=== PATIENT | female | born 1980 | race Caucasian/White ===

== ENCOUNTER 2020-06-03 19:23 | Emergency (ER) | payer OTHER ==
[~2020-06-03] VITALS: Ht 162.6 cm; Wt 56.7 kg
[2020-06-03] MEDS ORDERED: PRINIVIL10 MG PO (19:46)
[2020-06-03 19:52] LABS: Source, Urine Clean Catch
[2020-06-03 19:57] LABS: Appearance, Urine Clear (Clear); Bilirubin, Urine Neg (Neg); Blood, Urine Neg (Neg); Color, Urine Yellow (P-Yellow); Glucose Qualitative, Urine Neg (Neg); Ketones, Urine Neg (Neg); Leukocyte Esterase, Urine Neg (Neg); Nitrite, Urine Neg (Neg); Protein, Urine Neg (Neg); Urobilinogen, Urine NORM (Normal)
[2020-06-03 20:20] LABS: BASOPHILS ABSOLUTE AUTO 0.07 K/mm3 (0.00-0.23); BASOPHILS PERCENT AUTO 1 % (0-2); EOSINOPHILS PERCENT AUTO 5 % (0-6); Hematocrit 41.7 % (33.0-51.0); Hemoglobin 13.6 g/dL (11.5-16.0); IMMATURE GRAN ABSOLUTE AUTO 0.02 K/mm3 (0.00-0.10); IMMATURE GRAN PERCENT AUTO 0 % (0-1); LYMPHOCYTES ABSOLUTE AUTO 2.47 K/mm3 (0.84-5.20); LYMPHOCYTES PERCENT AUTO 39 % (21-46); MONOCYTES ABSOLUTE AUTO 0.46 K/mm3 (0.16-1.47); MONOCYTES PERCENT AUTO 7 % (4-13); Mean Corpuscular HGB Conc 32.6 g/dL (31.5-36.5); Mean Corpuscular Volume 92 fL (80-100); Mean Platelet Volume 9.7 fL (9.1-12.4); NEUTROPHILS ABSOLUTE AUTO 3.01 K/mm3 (1.96-9.15); NEUTROPHILS PERCENT AUTO 48 % (41-73); Platelet Count 254 K/mm3 (150-400); RDW Coefficient Variation 13.1 % (11.7-14.2); RDW Standard Deviation 44.1 fL (35.1-46.3); Red Blood Cell Count 4.53 M/mm3 (3.80-5.20); White Blood Cell Count 6.33 K/mm3 (4.00-11.30)
[2020-06-03 20:36] LABS: Alanine Aminotransfer (ALT/SGP 14 U/L (12-78); Albumin/Globulin Ratio 1.3 (0.8-1.8); Alk Phos 39 U/L (50-136); Anion Gap 7 mmol/L (6-16); Aspartate Aminotrans (AST/SGOT 14 U/L (12-37); Bilirubin, Total 0.4 mg/dL (0.1-1.0); Blood Urea Nitrogen 16 mg/dL (8-24); Bun/Creatinine Ratio 19.3 (12.0-20.0); CO2, Blood 28 mmol/L (21-32); Calcium, Blood 9.3 mg/dL (8.5-10.1); Chloride, Blood 107 mmol/L (98-108); Creatinine, Blood 0.83 mg/dL (0.40-1.00); Globulin, Blood 3.1 g/dL (2.2-4.0); Glomerular Filtration Rate >60 (60-); Glucose, Blood 91 mg/dL (70-99); Potassium, Blood 3.5 mmol/L (3.5-5.5); Sodium, Blood 142 mmol/L (136-145); Total Protein, Blood 7.1 g/dL (6.4-8.2)
== END 2020-06-03 22:06 | disposition home or self-care (01) ==
LOC: ER 19:23
PROVIDERS: Physician Assistant
DX: N81.10 Cystocele, unspecified (principal); Z88.0 Allergy status to penicillin; Z79.899 Other long term (current) drug therapy; I10 Essential (primary) hypertension
CPT/HCPCS: 74176; 80053; 81003; 81025; 83690; 85025; 96361; 96374; 96375; 99284-25; A9270; J1885; J2405; J3010; J7030

== ENCOUNTER 2020-09-25 15:49 | Emergency (ER) | payer OTHER ==
[~2020-09-25] VITALS: Ht 162.6 cm; Wt 56.7 kg
[~2020-09-25 15:49] MED LIST: PRINIVIL10 MG PO
[2020-09-25] MEDS ORDERED: CODEINE-GUAIFE120 M1 PO (20:14)
[2020-09-25] MEDS ORDERED: NORVASC5 MG PO (20:14)
== END 2020-09-25 20:29 | disposition home or self-care (01) ==
LOC: ER 15:49
DX: R05 Cough (principal); I10 Essential (primary) hypertension; Z87.891 Personal history of nicotine dependence; Z79.899 Other long term (current) drug therapy
CPT/HCPCS: 71046; 99284-25

== ENCOUNTER 2021-05-01 19:39 | Emergency (ER) | payer OTHER ==
[~2021-05-01] VITALS: Ht 162.6 cm; Wt 59.0 kg
[~2021-05-01 19:39] MED LIST changes: +CODEINE-GUAIFE120 M1 PO; +NORVASC5 MG PO
== END 2021-05-01 23:39 | disposition home or self-care (01) ==
LOC: ER 19:39
DX: B34.9 Viral infection, unspecified (principal); Z88.0 Allergy status to penicillin; Z88.6 Allergy status to analgesic agent; Z79.899 Other long term (current) drug therapy; Z87.891 Personal history of nicotine dependence; Z20.822 Contact with and (suspected) exposure to COVID-19
CPT/HCPCS: 71046; 99283-25; A9270

== ENCOUNTER → 2021-06-02 | Outpatient (CLI) | payer OTHER ==
[2021-06-02 16:56] LABS: CHOL/HDL RATIO 2.5; Cholesterol 168 mg/dL (50-200); HDL Cholesterol 66 mg/dL (>39); LDL/HDL RATIO 1.2; Low Density Lipoprotein Chol 76 mg/dL (<110); Triglycerides 130 mg/dL (30-140); Very Low Density Lipoprot Chol 26 mg/dL (6-28)
[2021-06-02 17:04] LABS: Alanine Aminotransfer (ALT/SGP 12 U/L (12-78); Albumin, Blood 4.1 g/dL (3.4-5.0); Albumin/Globulin Ratio 1.4 (0.8-1.8); Alk Phos 51 U/L (40-126); Anion Gap 8 mmol/L (6-16); Aspartate Aminotrans (AST/SGOT 10 U/L (12-37); Bilirubin, Total 0.6 mg/dL (0.1-1.0); Blood Urea Nitrogen 12 mg/dL (8-24); Bun/Creatinine Ratio 19.4 (12.0-20.0); CO2, Blood 25 mmol/L (21-32); Chloride, Blood 104 mmol/L (98-108); Creatinine, Blood 0.62 mg/dL (0.40-1.00); Glomerular Filtration Rate >60 (60-); Glucose, Blood 90 mg/dL (70-99); Potassium, Blood 4.2 mmol/L (3.5-5.5); Sodium, Blood 137 mmol/L (136-145); Thyroid Stimulating Hormone 1.772 uIU/mL (0.360-4.800); Total Protein, Blood 7.1 g/dL (6.4-8.2)
== END | disposition home or self-care (01) ==
LOC: LAB 16:36 → LAB SHORT 16:36
PROVIDERS: Physician Assistant
DX: Z00.00 Encounter for general adult medical examination without abnormal findings (principal); R30.9 Painful micturition, unspecified; I10 Essential (primary) hypertension
CPT/HCPCS: 80053; 80061; 84443; 87086

== ENCOUNTER 2021-06-09 20:07 | Emergency (ER) | payer OTHER ==
[~2021-06-09] VITALS: Ht 162.6 cm; Wt 59.0 kg
[2021-06-09 21:49] LABS: BASOPHILS ABSOLUTE AUTO 0.06 K/mm3 (0.00-0.23); BASOPHILS PERCENT AUTO 1 % (0-2); EOSINOPHILS ABSOLUTE AUTO 0.19 K/mm3 (0.00-0.68); EOSINOPHILS PERCENT AUTO 3 % (0-6); Hematocrit 41.4 % (33.0-51.0); Hemoglobin 14.2 g/dL (11.5-16.0); IMMATURE GRAN ABSOLUTE AUTO 0.02 K/mm3 (0.00-0.10); IMMATURE GRAN PERCENT AUTO 0 % (0-1); LYMPHOCYTES ABSOLUTE AUTO 2.99 K/mm3 (0.84-5.20); LYMPHOCYTES PERCENT AUTO 41 % (21-46); MONOCYTES ABSOLUTE AUTO 0.48 K/mm3 (0.16-1.47); MONOCYTES PERCENT AUTO 7 % (4-13); Mean Corpuscular HGB 30.9 pg (26.0-34.0); Mean Corpuscular HGB Conc 34.3 g/dL (31.5-36.5); Mean Corpuscular Volume 90 fL (80-100); NEUTROPHILS ABSOLUTE AUTO 3.63 K/mm3 (1.96-9.15); NEUTROPHILS PERCENT AUTO 49 % (41-73); Platelet Count 251 K/mm3 (150-400); RDW Coefficient Variation 12.3 % (11.7-14.2); RDW Standard Deviation 40.6 fL (35.1-46.3); Red Blood Cell Count 4.59 M/mm3 (3.80-5.20); White Blood Cell Count 7.37 K/mm3 (4.00-11.30)
[2021-06-09 22:09] LABS: Alanine Aminotransfer (ALT/SGP 17 U/L (12-78); Albumin/Globulin Ratio 1.3 (0.8-1.8); Alk Phos 43 U/L (50-136); Anion Gap 6 mmol/L (6-16); Aspartate Aminotrans (AST/SGOT 13 U/L (12-37); Bilirubin, Total 0.7 mg/dL (0.1-1.0); Blood Urea Nitrogen 13 mg/dL (8-24); CO2, Blood 26 mmol/L (21-32); Calcium, Blood 8.9 mg/dL (8.5-10.1); Chloride, Blood 107 mmol/L (98-108); Creatinine, Blood 0.76 mg/dL (0.40-1.00); Globulin, Blood 3.1 g/dL (2.2-4.0); Glomerular Filtration Rate >60 (60-); Glucose, Blood 82 mg/dL (70-99); Potassium, Blood 3.5 mmol/L (3.5-5.5); Sodium, Blood 139 mmol/L (136-145); Total Protein, Blood 7.1 g/dL (6.4-8.2); Troponin I <0.015 ng/mL (0.000-0.040)
== END 2021-06-10 00:43 | disposition home or self-care (01) ==
LOC: ER 20:07
PROVIDERS: Physician Assistant
DX: M94.0 Chondrocostal junction syndrome [Tietze] (principal); F17.210 Nicotine dependence, cigarettes, uncomplicated; R06.02 Shortness of breath; Z79.899 Other long term (current) drug therapy
CPT/HCPCS: 36415; 71046; 80053; 83690; 84484; 85025; 93005; 93010; 96374; 99285-25; J1885

== ENCOUNTER 2022-03-28 19:52 | Emergency (ER) | payer OTHER ==
[~2022-03-28] VITALS: Ht 162.6 cm; Wt 63.5 kg
[~2022-03-28 19:52] MED LIST changes: +ONDA4ODT MM
[2022-03-28 20:26] LABS: BASOPHILS ABSOLUTE AUTO 0.06 K/mm3 (0.00-0.23); BASOPHILS PERCENT AUTO 1 % (0-2); EOSINOPHILS ABSOLUTE AUTO 0.15 K/mm3 (0.00-0.68); EOSINOPHILS PERCENT AUTO 2 % (0-6); Hematocrit 43.9 % (33.0-51.0); Hemoglobin 15.4 g/dL (11.5-16.0); IMMATURE GRAN ABSOLUTE AUTO 0.02 K/mm3 (0.00-0.10); IMMATURE GRAN PERCENT AUTO 0 % (0-1); LYMPHOCYTES ABSOLUTE AUTO 2.21 K/mm3 (0.84-5.20); LYMPHOCYTES PERCENT AUTO 29 % (21-46); MONOCYTES ABSOLUTE AUTO 0.47 K/mm3 (0.16-1.47); MONOCYTES PERCENT AUTO 6 % (4-13); Mean Corpuscular HGB 31.8 pg (26.0-34.0); Mean Corpuscular HGB Conc 35.1 g/dL (31.5-36.5); Mean Corpuscular Volume 91 fL (80-100); Mean Platelet Volume 9.5 fL (9.1-12.4); NEUTROPHILS PERCENT AUTO 62 % (41-73); Platelet Count 313 K/mm3 (150-400); RDW Coefficient Variation 12.3 % (11.7-14.2); RDW Standard Deviation 41.1 fL (35.1-46.3); Red Blood Cell Count 4.84 M/mm3 (3.80-5.20); White Blood Cell Count 7.71 K/mm3 (4.00-11.30)
[2022-03-28 20:47] LABS: Albumin, Blood 3.9 g/dL (3.4-5.0); Albumin/Globulin Ratio 1.1 (0.8-1.8); Bilirubin, Total 0.4 mg/dL (0.1-1.0); Bun/Creatinine Ratio 19.6 (12.0-20.0); Calcium, Blood 8.9 mg/dL (8.5-10.1); Creatinine, Blood 0.66 mg/dL (0.40-1.00); Globulin, Blood 3.5 g/dL (2.2-4.0); Potassium, Blood 3.5 mmol/L (3.5-5.5); Total Protein, Blood 7.4 g/dL (6.4-8.2)
[2022-03-28] MEDS ORDERED: Prinivil10 MG PO (22:55)
[2022-03-28] MEDS ORDERED: Flonase 0.05% N16 GM (22:55)
[2022-03-28] MEDS ORDERED: HYDR1TAB94 PO (23:00)
[2022-03-28] MEDS ORDERED: BENZ100A PO (23:00)
[2022-03-28 23:52] LABS: Influenza A, PCR NEGATIVE (NEGATIVE); Influenza B, PCR NEGATIVE (NEGATIVE); Resp Syncytial Virus, PCR NEGATIVE (NEGATIVE); SARS-Cov-2 (COVID-19) PCR, MMC NEGATIVE (NEGATIVE)
== END 2022-03-28 23:27 | disposition home or self-care (01) ==
LOC: ER 19:52
PROVIDERS: Emergency Medicine; Physician Assistant
DX: R07.89 Other chest pain (principal); J40 Bronchitis, not specified as acute or chronic; F17.210 Nicotine dependence, cigarettes, uncomplicated; I10 Essential (primary) hypertension; Z20.822 Contact with and (suspected) exposure to COVID-19; Z88.0 Allergy status to penicillin; Z88.1 Allergy status to other antibiotic agents
CPT/HCPCS: 0241U; 36415; 71045; 80053; 83690; 84484; 85025; 93005; 93010; A9270

== ENCOUNTER → 2022-12-25 | Outpatient (CLI) | payer OTHER ==
[~2022-12-25] MED LIST changes: +BENZ100A PO; +Flonase 0.05% N16 GM; +HYDR1TAB94 PO; +Prinivil10 MG PO
== END | disposition home or self-care (01) ==
LOC: LAB SHORT 07:15 → LAB 07:15
DX: R20.8 Other disturbances of skin sensation (principal)
CPT/HCPCS: 87086

== ENCOUNTER 2023-09-05 16:37 | Emergency (ER) | payer OTHER ==
[~2023-09-05] VITALS: Ht 162.6 cm; Wt 61.2 kg
[2023-09-05 17:07] VITALS: BP 151/90
[2023-09-05 18:10] LABS: Influenza A, PCR NEGATIVE (NEGATIVE); Influenza B, PCR NEGATIVE (NEGATIVE); Resp Syncytial Virus, PCR NEGATIVE (NEGATIVE); SARS-Cov-2 (COVID-19) PCR, MMC NEGATIVE (NEGATIVE)
== END 2023-09-05 19:32 | disposition home or self-care (01) ==
LOC: ER 16:37
PROVIDERS: Student in an Organized Health Care Education/Training Program
DX: J06.9 Acute upper respiratory infection, unspecified (principal); I10 Essential (primary) hypertension; F17.210 Nicotine dependence, cigarettes, uncomplicated; Z79.899 Other long term (current) drug therapy; Z20.822 Contact with and (suspected) exposure to COVID-19; Z88.0 Allergy status to penicillin; Z88.8 Allergy status to other drugs, medicaments and biological substances
CPT/HCPCS: 0241U; 71046; 87081; 87430; 96372; 99283-25; J1885

== ENCOUNTER 2025-01-01 12:24 | Emergency (ER) | payer SELFPAY ==
[~2025-01-01] VITALS: Ht 162.6 cm; Wt 63.5 kg
[2025-01-01 12:49] VITALS: BP 151/80
[2025-01-01 13:13] LABS: Source, Urine Clean Catch
[2025-01-01 13:22] LABS: Appearance, Urine Clear (Clear); Bilirubin, Urine Neg (Neg); Blood, Urine 4+ (Neg); Color, Urine Yellow (P-Yellow); Glucose Qualitative, Urine Neg (Neg); Ketones, Urine Neg (Neg); Leukocyte Esterase, Urine 3+ (Neg); Nitrite, Urine Neg (Neg); Protein, Urine 1+ (Neg); Urobilinogen, Urine NORM (Normal)
[2025-01-01 14:16] LABS: Bacteria Many /hpf; Red Blood Cells, Urine 0-2 /hpf (0-2); Squamous Epithelial Cells Rare /hpf (Few); White Blood Cells, Urine 25-50 /hpf (0-5)
[2025-01-01] MEDS ORDERED: CEFP200 PO (14:41)
[2025-01-01] MEDS ORDERED: PHENA200 PO (14:41)
[2025-01-01] MEDS ORDERED: Phenazopyridine HCl 100 MG Tab PO ONE (14:45)
[2025-01-01] MEDS ORDERED: Ibuprofen 600 MG Tab PO ONE (14:45)
== END 2025-01-01 14:49 | disposition home or self-care (01) ==
LOC: ER 12:24
PROVIDERS: Physician Assistant
DX: N12 Tubulo-interstitial nephritis, not specified as acute or chronic (principal); I10 Essential (primary) hypertension; F17.210 Nicotine dependence, cigarettes, uncomplicated; Z87.440 Personal history of urinary (tract) infections; Z88.0 Allergy status to penicillin; Z88.8 Allergy status to other drugs, medicaments and biological substances; Z79.899 Other long term (current) drug therapy; Z59.89 Other problems related to housing and economic circumstances
CPT/HCPCS: 81001; 87077; 87086; 87186; 99283; A9270

== ENCOUNTER 2025-01-10 23:48 | Emergency (ER) | payer SELFPAY ==
[~2025-01-10] VITALS: Ht 162.6 cm; Wt 60.9 kg
[~2025-01-10 23:48] MED LIST changes: +CEFP200 PO; +PHENA200 PO
[2025-01-11 01:14] LABS: U Amphetamine Screen DETECTED; U Barbituate Screen Not Detected; U Benzodiazapine Screen DETECTED; U Buprenorphine Screen Not Detected; U Cannabinoids Screen Not Detected; U Cocaine Screen Not Detected; U Methadone Screen Not Detected; U Methamphetamine Screen DETECTED; U Opiates Screen Not Detected; U Oxycodone Screen Not Detected; U Phencyclidine Screen Not Detected
[2025-01-11 01:30] VITALS: BP 150/102
[2025-01-11] MEDS ORDERED: ALPRAZolam 0.25 MG Tab PO ONE (01:45)
== END 2025-01-11 01:57 | disposition home or self-care (01) ==
LOC: ER 23:48
PROVIDERS: Emergency Medicine
DX: T43.651A Poisoning by methamphetamines accidental (unintentional), initial encounter (principal); I10 Essential (primary) hypertension; Z59.89 Other problems related to housing and economic circumstances; Z88.0 Allergy status to penicillin; Z88.6 Allergy status to analgesic agent; Z79.899 Other long term (current) drug therapy; Z88.1 Allergy status to other antibiotic agents; Z79.2 Long term (current) use of antibiotics; Z79.1 Long term (current) use of non-steroidal anti-inflammatories (NSAID); Z79.891 Long term (current) use of opiate analgesic
CPT/HCPCS: 99283; A9270

== ENCOUNTER 2025-03-07 14:03 | Emergency (ER) | payer SELFPAY ==
[~2025-03-07] VITALS: Ht 162.6 cm; Wt 59.0 kg
[2025-03-07 14:12] VITALS: BP 161/98
[2025-03-07 14:49] LABS: Source, Urine Voided
[2025-03-07 14:53] LABS: Appearance, Urine Hazy (Clear); Bilirubin, Urine Neg (Neg); Blood, Urine 3+ (Neg); Color, Urine Yellow (P-Yellow); Glucose Qualitative, Urine Neg (Neg); Ketones, Urine Neg (Neg); Leukocyte Esterase, Urine 3+ (Neg); Nitrite, Urine Neg (Neg); Protein, Urine 2+ (Neg); Urobilinogen, Urine NORM (Normal)
[2025-03-07 15:02] LABS: Bacteria Many /hpf; Squamous Epithelial Cells Mod /hpf (Few); White Blood Cells, Urine TNTC /hpf (0-5)
[2025-03-07] MEDS ORDERED: Cephalexin Monohydrate 500 MG Cap PO ONE (15:10)
[2025-03-07] MEDS ORDERED: CEPH500 PO (15:16)
== END 2025-03-07 15:30 | disposition home or self-care (01) ==
LOC: ER 14:03
PROVIDERS: Emergency Medicine
DX: N39.0 Urinary tract infection, site not specified (principal); I10 Essential (primary) hypertension; F17.210 Nicotine dependence, cigarettes, uncomplicated; Z87.440 Personal history of urinary (tract) infections; Z88.0 Allergy status to penicillin; Z88.1 Allergy status to other antibiotic agents; Z79.899 Other long term (current) drug therapy
CPT/HCPCS: 81001; 87077; 87086; 87186; 99283; A9270

== ENCOUNTER 2025-03-09 23:48 | Emergency (ER) | payer SELFPAY ==
[~2025-03-09] VITALS: Ht 162.6 cm; Wt 59.0 kg
[~2025-03-09 23:48] MED LIST changes: +CEPH500 PO
[2025-03-10 00:34] LABS: BASOPHILS ABSOLUTE AUTO 0.06 K/mm3 (0.00-0.23); BASOPHILS PERCENT AUTO 1 % (0-2); EOSINOPHILS ABSOLUTE AUTO 0.05 K/mm3 (0.00-0.68); EOSINOPHILS PERCENT AUTO 1 % (0-6); Hematocrit 41.9 % (33.0-51.0); Hemoglobin 15.2 g/dL (11.5-16.0); IMMATURE GRAN ABSOLUTE AUTO 0.02 K/mm3 (0.00-0.10); IMMATURE GRAN PERCENT AUTO 0 % (0-1); LYMPHOCYTES ABSOLUTE AUTO 1.98 K/mm3 (0.84-5.20); LYMPHOCYTES PERCENT AUTO 20 % (21-46); MONOCYTES ABSOLUTE AUTO 0.74 K/mm3 (0.16-1.47); MONOCYTES PERCENT AUTO 7 % (4-13); Mean Corpuscular HGB 32.6 pg (26.0-34.0); Mean Corpuscular HGB Conc 36.3 g/dL (31.5-36.5); Mean Corpuscular Volume 90 fL (80-100); Mean Platelet Volume 9.4 fL (9.1-12.4); NEUTROPHILS ABSOLUTE AUTO 7.24 K/mm3 (1.96-9.15); NEUTROPHILS PERCENT AUTO 72 % (41-73); Platelet Count 326 K/mm3 (150-400); RDW Coefficient Variation 11.8 % (11.7-14.2); RDW Standard Deviation 38.5 fL (35.1-46.3); Red Blood Cell Count 4.66 M/mm3 (3.80-5.20); White Blood Cell Count 10.09 K/mm3 (4.00-11.30)
[2025-03-10 00:51] LABS: Albumin, Blood 4.6 g/dL (3.4-5.0); Albumin/Globulin Ratio 1.4 (0.8-1.8); Bilirubin, Total 1.3 mg/dL (0.1-1.0); Calcium, Blood 9.8 mg/dL (8.5-10.1); Creatinine, Blood 0.73 mg/dL (0.40-1.00); Globulin, Blood 3.3 g/dL (2.2-4.0); Potassium, Blood 3.6 mmol/L (3.5-5.5); Total Protein, Blood 7.9 g/dL (6.4-8.2)
[2025-03-10 05:25] LABS: Source, Urine Clean Catch
[2025-03-10 05:34] LABS: Appearance, Urine Clear (Clear); Bilirubin, Urine Neg (Neg); Blood, Urine Neg (Neg); Color, Urine Pale Yellow (P-Yellow); Glucose Qualitative, Urine Neg (Neg); Ketones, Urine Neg (Neg); Leukocyte Esterase, Urine Neg (Neg); Nitrite, Urine Neg (Neg); Protein, Urine Neg (Neg); Urobilinogen, Urine NORM (Normal)
[2025-03-10 08:00] VITALS: BP 133/101
== END 2025-03-10 08:32 | disposition home or self-care (01) ==
LOC: ER 23:48
PROVIDERS: Student in an Organized Health Care Education/Training Program
DX: R10.84 Generalized abdominal pain (principal); R07.9 Chest pain, unspecified; F15.10 Other stimulant abuse, uncomplicated; F17.200 Nicotine dependence, unspecified, uncomplicated; I10 Essential (primary) hypertension; Z88.0 Allergy status to penicillin; Z88.8 Allergy status to other drugs, medicaments and biological substances
CPT/HCPCS: 71046; 74176; 80053; 81003; 84484; 85025; 93005; 93010; 99285-25

== ENCOUNTER 2025-03-10 19:20 | Emergency (ER) | payer SELFPAY ==
[~2025-03-10] VITALS: Ht 167.6 cm; Wt 72.6 kg
[2025-03-10 19:25] VITALS: BP 187/124
[2025-03-10] MEDS ORDERED: Peg/Electrolytes 4,000 ML BTL PO ONE (19:30)
== END 2025-03-10 19:34 | disposition home or self-care (01) ==
LOC: ER 19:20
DX: K59.00 Constipation, unspecified (principal); F15.10 Other stimulant abuse, uncomplicated; I10 Essential (primary) hypertension; F17.210 Nicotine dependence, cigarettes, uncomplicated; Z79.899 Other long term (current) drug therapy; Z88.0 Allergy status to penicillin; Z88.8 Allergy status to other drugs, medicaments and biological substances
CPT/HCPCS: 99282; A9270

== ENCOUNTER 2025-06-15 15:54 | Emergency (ER) | payer SELFPAY ==
[~2025-06-15] VITALS: Ht 162.6 cm; Wt 53.5 kg
[2025-06-15 16:22] VITALS: BP 177/114
[2025-06-15 16:32] LABS: Source, Urine Clean Catch
[2025-06-15 16:35] LABS: Bilirubin, Urine Neg (Neg); Color, Urine Yellow (P-Yellow); Glucose Qualitative, Urine Neg (Neg); Ketones, Urine Neg (Neg); Leukocyte Esterase, Urine Neg (Neg); Protein, Urine Neg (Neg); Specific Gravity, Urine 1.005 (1.003-1.022); Urobilinogen, Urine 1+ (Normal)
[2025-06-15 16:44] LABS: BASOPHILS ABSOLUTE AUTO 0.07 K/mm3 (0.00-0.23); BASOPHILS PERCENT AUTO 1 % (0-2); EOSINOPHILS ABSOLUTE AUTO 0.22 K/mm3 (0.00-0.68); EOSINOPHILS PERCENT AUTO 2 % (0-6); Hematocrit 40.1 % (33.0-51.0); Hemoglobin 13.9 g/dL (11.5-16.0); IMMATURE GRAN ABSOLUTE AUTO 0.02 K/mm3 (0.00-0.10); IMMATURE GRAN PERCENT AUTO 0 % (0-1); LYMPHOCYTES ABSOLUTE AUTO 2.91 K/mm3 (0.84-5.20); LYMPHOCYTES PERCENT AUTO 31 % (21-46); MONOCYTES ABSOLUTE AUTO 0.56 K/mm3 (0.16-1.47); MONOCYTES PERCENT AUTO 6 % (4-13); Mean Corpuscular HGB Conc 34.7 g/dL (31.5-36.5); Mean Corpuscular Volume 93 fL (80-100); NEUTROPHILS ABSOLUTE AUTO 5.75 K/mm3 (1.96-9.15); NEUTROPHILS PERCENT AUTO 60 % (41-73); NRBC ABSOLUTE 0.00 K/mm3 (0.00-0.02); NRBC Auto 0.0 /100 WBC (0.0-0.2); Platelet Count 294 K/mm3 (150-400); RDW Coefficient Variation 12.2 % (11.7-14.2); RDW Standard Deviation 42.0 fL (35.1-46.3)
[2025-06-15 17:43] LABS: Alanine Aminotransfer (ALT/SGP 15.0 U/L (12-78); Albumin, Blood 4.1 g/dL (3.4-5.0); Albumin/Globulin Ratio 1.3 (0.8-1.8); Anion Gap 4.0 mmol/L (3-11); Aspartate Aminotrans (AST/SGOT 13.0 U/L (12-37); Bilirubin, Total 0.7 mg/dL (0.1-1.0); Blood Urea Nitrogen 10.0 mg/dL (8-24); CO2, Blood 29.0 mmol/L (21-32); Calcium, Blood 9.3 mg/dL (8.5-10.1); Chloride, Blood 102.0 mmol/L (98-108); Creatinine, Blood 0.64 mg/dL (0.40-1.00); Globulin, Blood 3.2 g/dL (2.2-4.0); Glucose, Blood 94.0 mg/dL (70-99); Potassium, Blood 3.3 mmol/L (3.5-5.5); Sodium, Blood 132.0 mmol/L (136-145); Total Protein, Blood 7.3 g/dL (6.4-8.2)
[2025-06-15] MEDS ORDERED: Ketorolac Tromethamine 15mg Vial IV ONE (17:55)
[2025-06-15] MEDS ORDERED: METR500 PO (19:58)
[2025-06-15] MEDS ORDERED: LEVFLO500 PO (19:58)
[2025-06-15] MEDS ORDERED: Doxycycline150 MG PO (19:58)
[2025-06-15] MEDS ORDERED: Potassium Chloride 10 Meq Tablet SA PO ONE (20:00)
[2025-06-15 20:50] LABS: Chlamydia Trachomatis Vaginal NOT DETECTED (NOT DETECT); Neisseria Gonorrhoea Vaginal NOT DETECTED (NOT DETECT)
== END 2025-06-15 20:05 | disposition home or self-care (01) ==
LOC: ER 15:54
PROVIDERS: Emergency Medicine; Student in an Organized Health Care Education/Training Program
DX: N20.0 Calculus of kidney (principal); N39.0 Urinary tract infection, site not specified; N73.9 Female pelvic inflammatory disease, unspecified; K59.00 Constipation, unspecified; E87.1 Hypo-osmolality and hyponatremia; E87.6 Hypokalemia; F17.210 Nicotine dependence, cigarettes, uncomplicated
CPT/HCPCS: 74176; 76830; 76856; 80053; 81001; 85025; 87077; 87086; 87186; 87491; 87591; 96374; 99284-25; A9270; J1885

== ENCOUNTER 2025-07-16 16:20 | Emergency (ER) | payer SELFPAY ==
[~2025-07-16] VITALS: Ht 162.6 cm; Wt 54.4 kg
[~2025-07-16 16:20] MED LIST changes: +Doxycycline150 MG PO; +LEVFLO500 PO; +METR500 PO
[2025-07-16 16:25] VITALS: BP 177/109
[2025-07-16 17:21] LABS: Influenza A, PCR NEGATIVE (NEGATIVE); Influenza B, PCR NEGATIVE (NEGATIVE); Resp Syncytial Virus, PCR NEGATIVE (NEGATIVE); SARS-Cov-2 (COVID-19) PCR, MMC NEGATIVE (NEGATIVE)
[2025-07-16] MEDS ORDERED: Ketorolac Tromethamine 15mg Vial IM ONE (19:20)
[2025-07-16] MEDS ORDERED: AZIT250 PO (19:24)
== END 2025-07-16 19:33 | disposition home or self-care (01) ==
LOC: ER 16:20
PROVIDERS: Student in an Organized Health Care Education/Training Program
DX: H66.92 Otitis media, unspecified, left ear (principal); J06.9 Acute upper respiratory infection, unspecified; I10 Essential (primary) hypertension; Z88.0 Allergy status to penicillin; Z88.1 Allergy status to other antibiotic agents; Z79.899 Other long term (current) drug therapy
CPT/HCPCS: 87081; 87430; 87637; 96372; 99282-25; A9270; J1885

== ENCOUNTER 2025-07-28 21:29 | Emergency (ER) | payer BC ==
[~2025-07-28] VITALS: Ht 157.5 cm; Wt 59.0 kg
[~2025-07-28 21:29] MED LIST changes: +AZIT250 PO
[2025-07-28] MEDS ORDERED: Ipratropium/Albuterol SulF 2.5-0.5MG/3 ML Amp INH PRN (21:35)
[2025-07-28] MEDS ORDERED: NS 1,000 ML IV ONE (21:43)
[2025-07-28] MEDS ORDERED: LORazepam 2 MG/ML 1ML Injection ONE (21:43)
[2025-07-28] MEDS ORDERED: LORazepam 2 MG/ML 1ML Injection IV ONE (21:45)
[2025-07-28] MEDS ORDERED: NS 1,000 ML IV SCH (21:45)
[2025-07-28 21:52] LABS: BASOPHILS ABSOLUTE AUTO 0.07 K/mm3 (0.00-0.23); BASOPHILS PERCENT AUTO 1 % (0-2); EOSINOPHILS ABSOLUTE AUTO 0.10 K/mm3 (0.00-0.68); EOSINOPHILS PERCENT AUTO 1 % (0-6); Hematocrit 41.7 % (33.0-51.0); Hemoglobin 14.9 g/dL (11.5-16.0); IMMATURE GRAN ABSOLUTE AUTO 0.04 K/mm3 (0.00-0.10); IMMATURE GRAN PERCENT AUTO 0 % (0-1); LYMPHOCYTES ABSOLUTE AUTO 3.51 K/mm3 (0.84-5.20); LYMPHOCYTES PERCENT AUTO 29 % (21-46); MONOCYTES ABSOLUTE AUTO 0.94 K/mm3 (0.16-1.47); MONOCYTES PERCENT AUTO 8 % (4-13); Mean Corpuscular HGB Conc 35.7 g/dL (31.5-36.5); Mean Corpuscular Volume 90 fL (80-100); NEUTROPHILS ABSOLUTE AUTO 7.48 K/mm3 (1.96-9.15); NEUTROPHILS PERCENT AUTO 62 % (41-73); NRBC ABSOLUTE 0.00 K/mm3 (0.00-0.02); NRBC Auto 0.0 /100 WBC (0.0-0.2); Platelet Count 386 K/mm3 (150-400); RDW Coefficient Variation 12.1 % (11.7-14.2); RDW Standard Deviation 39.8 fL (35.1-46.3)
[2025-07-28 22:18] LABS: Alanine Aminotransfer (ALT/SGP 17 U/L (12-78); Albumin, Blood 4.5 g/dL (3.4-5.0); Albumin/Globulin Ratio 1.5 (0.8-1.8); Anion Gap 13 mmol/L (3-11); Aspartate Aminotrans (AST/SGOT 17 U/L (12-37); Bilirubin, Total 1.3 mg/dL (0.1-1.0); Blood Urea Nitrogen 9 mg/dL (8-24); CO2, Blood 21 mmol/L (21-32); Calcium, Blood 9.2 mg/dL (8.5-10.1); Chloride, Blood 104 mmol/L (98-108); Creatinine, Blood 0.72 mg/dL (0.40-1.00); Ethanol (Alcohol), Blood, Med <3 mg/dL; Globulin, Blood 3.1 g/dL (2.2-4.0); Glucose, Blood 143 mg/dL (70-99); Potassium, Blood 3.1 mmol/L (3.5-5.5); Sodium, Blood 135 mmol/L (136-145); Thyroid Stimulating Hormone 2.900 uIU/mL (0.360-4.800); Total Protein, Blood 7.6 g/dL (6.4-8.2)
[2025-07-28 22:27] LABS: D-Dimer, Quantitative 0.54 mg/L FEU (0.00-0.52); Prothrombin Time Results 11.9 Sec (9.7-11.5)
[2025-07-28] MEDS ORDERED: Ondansetron HCl 2 MG / ML 2ML Vial IV ONE (23:15)
[2025-07-28 23:21] LABS: U Amphetamine Screen DETECTED; U Methamphetamine Screen DETECTED
[2025-07-28 23:22] LABS: U Barbituate Screen Not Detected; U Benzodiazapine Screen Not Detected; U Buprenorphine Screen Not Detected; U Cannabinoids Screen Not Detected; U Cocaine Screen Not Detected; U Methadone Screen Not Detected; U Opiates Screen Not Detected; U Oxycodone Screen Not Detected; U Phencyclidine Screen Not Detected
[2025-07-29] MEDS ORDERED: POTA10T PO (01:00)
[2025-07-29 03:36] LABS: Source, Urine Clean Catch
[2025-07-29 03:47] LABS: Bilirubin, Urine Neg (Neg); Glucose Qualitative, Urine Neg (Neg); Ketones, Urine Neg (Neg); Leukocyte Esterase, Urine Neg (Neg); Protein, Urine Neg (Neg); Specific Gravity, Urine 1.005 (1.003-1.022); Urobilinogen, Urine NORM (Normal)
[2025-07-29 04:03] LABS: Color, Urine Pale Yellow (P-Yellow)
[2025-07-29 04:17] VITALS: BP 146/113
[2025-07-30] MEDS ORDERED: CEPH500 PO (04:21)
[2025-07-30] MEDS ORDERED: Hydroxyzine HCl25 MG PO (05:05)
== END 2025-07-29 04:17 | disposition home or self-care (01) ==
LOC: ER 21:29
PROVIDERS: Emergency Medicine; Student in an Organized Health Care Education/Training Program
DX: M54.9 Dorsalgia, unspecified (principal); F15.90 Other stimulant use, unspecified, uncomplicated; I10 Essential (primary) hypertension; F17.210 Nicotine dependence, cigarettes, uncomplicated; Z79.899 Other long term (current) drug therapy; Z88.0 Allergy status to penicillin; Z88.8 Allergy status to other drugs, medicaments and biological substances
CPT/HCPCS: 71045; 71260; 74177; 80053; 80320; 81003; 83880; 84439; 84443; 84484; 85025; 85379; 85610; 85730; 93005; 93010; 96361; 96374-59; 96375; 99285-25; A9270; J2060; J2405; J7030; Q9967

== ENCOUNTER 2025-07-29 12:39 | Emergency (ER) | payer BC ==
[~2025-07-29] VITALS: Ht 162.6 cm; Wt 52.2 kg
[~2025-07-29 12:39] MED LIST changes: +POTA10T PO
[2025-07-29] MEDS ORDERED: Ondansetron HCl 2 MG / ML 2ML Vial IV ONE (12:50)
[2025-07-29] MEDS ORDERED: Ketorolac Tromethamine 15mg Vial IV ONE (14:30)
[2025-07-29 15:17] LABS: BASOPHILS ABSOLUTE AUTO 0.04 K/mm3 (0.00-0.23); BASOPHILS PERCENT AUTO 1 % (0-2); EOSINOPHILS ABSOLUTE AUTO 0.10 K/mm3 (0.00-0.68); EOSINOPHILS PERCENT AUTO 1 % (0-6); Hematocrit 42.5 % (33.0-51.0); Hemoglobin 14.8 g/dL (11.5-16.0); IMMATURE GRAN ABSOLUTE AUTO 0.06 K/mm3 (0.00-0.10); IMMATURE GRAN PERCENT AUTO 1 % (0-1); LYMPHOCYTES ABSOLUTE AUTO 1.29 K/mm3 (0.84-5.20); LYMPHOCYTES PERCENT AUTO 18 % (21-46); MONOCYTES ABSOLUTE AUTO 0.36 K/mm3 (0.16-1.47); MONOCYTES PERCENT AUTO 5 % (4-13); Mean Corpuscular HGB Conc 34.8 g/dL (31.5-36.5); Mean Corpuscular Volume 93 fL (80-100); NEUTROPHILS ABSOLUTE AUTO 5.50 K/mm3 (1.96-9.15); NEUTROPHILS PERCENT AUTO 75 % (41-73); NRBC ABSOLUTE 0.00 K/mm3 (0.00-0.02); NRBC Auto 0.0 /100 WBC (0.0-0.2); RDW Coefficient Variation 12.1 % (11.7-14.2); RDW Standard Deviation 41.3 fL (35.1-46.3)
[2025-07-29 15:29] LABS: Alanine Aminotransfer (ALT/SGP 18.0 U/L (12-78); Albumin, Blood 4.0 g/dL (3.4-5.0); Albumin/Globulin Ratio 1.3 (0.8-1.8); Anion Gap 12.0 mmol/L (3-11); Aspartate Aminotrans (AST/SGOT 12.0 U/L (12-37); Bilirubin, Total 1.1 mg/dL (0.1-1.0); Blood Urea Nitrogen 9.0 mg/dL (8-24); CO2, Blood 20.0 mmol/L (21-32); Calcium, Blood 8.5 mg/dL (8.5-10.1); Chloride, Blood 108.0 mmol/L (98-108); Creatinine, Blood 0.61 mg/dL (0.40-1.00); Globulin, Blood 3.1 g/dL (2.2-4.0); Glucose, Blood 95.0 mg/dL (70-99); Potassium, Blood 3.5 mmol/L (3.5-5.5); Sodium, Blood 136.0 mmol/L (136-145); Total Protein, Blood 7.1 g/dL (6.4-8.2)
[2025-07-29 15:49] LABS: Platelet Count 260 K/mm3 (150-400)
[2025-07-29 16:10] VITALS: BP 149/86
[2025-07-30] MEDS ORDERED: CEPH500 PO (04:21)
[2025-07-30] MEDS ORDERED: Hydroxyzine HCl25 MG PO (05:05)
== END 2025-07-29 16:10 | disposition home or self-care (01) ==
LOC: ER 12:39
PROVIDERS: Physician Assistant
DX: T40.411A Poisoning by fentanyl or fentanyl analogs, accidental (unintentional), initial encounter (principal); I10 Essential (primary) hypertension; F17.210 Nicotine dependence, cigarettes, uncomplicated; Z79.899 Other long term (current) drug therapy; Z88.0 Allergy status to penicillin; Z88.8 Allergy status to other drugs, medicaments and biological substances
CPT/HCPCS: 71045; 80053; 85025; 93005; 93010; 96374; 96375; 99284-25; J1885; J2405

== ENCOUNTER 2025-07-30 02:49 | Emergency (ER) | payer BC ==
[~2025-07-30] VITALS: Ht 162.6 cm; Wt 52.2 kg
[2025-07-30] MEDS ORDERED: LORazepam 2 MG/ML 1ML Injection IV ONE (03:00)
[2025-07-30 03:06] LABS: BASOPHILS ABSOLUTE AUTO 0.05 K/mm3 (0.00-0.23); BASOPHILS PERCENT AUTO 1 % (0-2); EOSINOPHILS ABSOLUTE AUTO 0.21 K/mm3 (0.00-0.68); EOSINOPHILS PERCENT AUTO 2 % (0-6); Hematocrit 39.9 % (33.0-51.0); Hemoglobin 14.3 g/dL (11.5-16.0); IMMATURE GRAN ABSOLUTE AUTO 0.01 K/mm3 (0.00-0.10); IMMATURE GRAN PERCENT AUTO 0 % (0-1); LYMPHOCYTES ABSOLUTE AUTO 1.98 K/mm3 (0.84-5.20); LYMPHOCYTES PERCENT AUTO 23 % (21-46); MONOCYTES ABSOLUTE AUTO 0.56 K/mm3 (0.16-1.47); MONOCYTES PERCENT AUTO 6 % (4-13); Mean Corpuscular HGB Conc 35.8 g/dL (31.5-36.5); Mean Corpuscular Volume 91 fL (80-100); NEUTROPHILS ABSOLUTE AUTO 5.97 K/mm3 (1.96-9.15); NEUTROPHILS PERCENT AUTO 68 % (41-73); NRBC ABSOLUTE 0.00 K/mm3 (0.00-0.02); NRBC Auto 0.0 /100 WBC (0.0-0.2); Platelet Count 272 K/mm3 (150-400); RDW Coefficient Variation 12.0 % (11.7-14.2); RDW Standard Deviation 40.0 fL (35.1-46.3)
[2025-07-30 03:33] LABS: Alanine Aminotransfer (ALT/SGP 19.0 U/L (12-78); Albumin, Blood 3.9 g/dL (3.4-5.0); Albumin/Globulin Ratio 1.3 (0.8-1.8); Anion Gap 10.0 mmol/L (3-11); Aspartate Aminotrans (AST/SGOT 19.0 U/L (12-37); Bilirubin, Total 1.0 mg/dL (0.1-1.0); Blood Urea Nitrogen 12.0 mg/dL (8-24); CO2, Blood 22.0 mmol/L (21-32); Calcium, Blood 8.9 mg/dL (8.5-10.1); Chloride, Blood 107.0 mmol/L (98-108); Creatinine, Blood 0.75 mg/dL (0.40-1.00); Globulin, Blood 2.9 g/dL (2.2-4.0); Glucose, Blood 126.0 mg/dL (70-99); Magnesium, Blood 2.3 mg/dL (1.6-2.4); Potassium, Blood 3.3 mmol/L (3.5-5.5); Sodium, Blood 136.0 mmol/L (136-145); Total Protein, Blood 6.8 g/dL (6.4-8.2)
[2025-07-30 03:48] LABS: Source, Urine Clean Catch
[2025-07-30 03:59] LABS: Bilirubin, Urine Neg (Neg); Glucose Qualitative, Urine Neg (Neg); Ketones, Urine 1+ (Neg); Leukocyte Esterase, Urine 2+ (Neg); Protein, Urine Neg (Neg); Specific Gravity, Urine 1.005 (1.003-1.022); Urobilinogen, Urine NORM (Normal)
[2025-07-30 04:00] LABS: Color, Urine Pale Yellow (P-Yellow)
[2025-07-30 04:08] LABS: Red Blood Cells, Urine Not Seen /hpf (0-2)
[2025-07-30] MEDS ORDERED: CEPH500 PO (04:21)
[2025-07-30 04:30] VITALS: BP 137/100
[2025-07-30] MEDS ORDERED: Hydroxyzine HCl25 MG PO (05:05)
== END 2025-07-30 05:00 | disposition home or self-care (01) ==
LOC: ER 02:49
PROVIDERS: Student in an Organized Health Care Education/Training Program
DX: R07.2 Precordial pain (principal); N30.00 Acute cystitis without hematuria; F17.210 Nicotine dependence, cigarettes, uncomplicated; Z79.899 Other long term (current) drug therapy; Z88.1 Allergy status to other antibiotic agents; F15.90 Other stimulant use, unspecified, uncomplicated
CPT/HCPCS: 80053; 81001; 83735; 84484; 84703; 85025; 87086; 87147; 96374; 99285-25; A9270; J2060; J7120

== ENCOUNTER 2025-08-27 20:03 | Emergency (ER) | payer BC ==
[~2025-08-27] VITALS: Ht 162.6 cm; Wt 54.4 kg
[~2025-08-27 20:03] MED LIST changes: +Hydroxyzine HCl25 MG PO
[2025-08-27 20:50] LABS: BASOPHILS ABSOLUTE AUTO 0.07 K/mm3 (0.00-0.23); BASOPHILS PERCENT AUTO 1 % (0-2); EOSINOPHILS ABSOLUTE AUTO 0.07 K/mm3 (0.00-0.68); EOSINOPHILS PERCENT AUTO 1 % (0-6); Hematocrit 45.9 % (33.0-51.0); Hemoglobin 16.3 g/dL (11.5-16.0); IMMATURE GRAN ABSOLUTE AUTO 0.03 K/mm3 (0.00-0.10); IMMATURE GRAN PERCENT AUTO 0 % (0-1); LYMPHOCYTES ABSOLUTE AUTO 2.71 K/mm3 (0.84-5.20); LYMPHOCYTES PERCENT AUTO 33 % (21-46); MONOCYTES ABSOLUTE AUTO 0.75 K/mm3 (0.16-1.47); MONOCYTES PERCENT AUTO 9 % (4-13); Mean Corpuscular HGB Conc 35.5 g/dL (31.5-36.5); Mean Corpuscular Volume 91 fL (80-100); NEUTROPHILS ABSOLUTE AUTO 4.66 K/mm3 (1.96-9.15); NEUTROPHILS PERCENT AUTO 56 % (41-73); NRBC ABSOLUTE 0.00 K/mm3 (0.00-0.02); NRBC Auto 0.0 /100 WBC (0.0-0.2); Platelet Count 338 K/mm3 (150-400); RDW Coefficient Variation 13.2 % (11.7-14.2); RDW Standard Deviation 44.2 fL (35.1-46.3)
[2025-08-27 21:10] LABS: Alanine Aminotransfer (ALT/SGP 25.0 U/L (12-78); Albumin, Blood 4.5 g/dL (3.4-5.0); Albumin/Globulin Ratio 1.2 (0.8-1.8); Anion Gap 12.0 mmol/L (3-11); Aspartate Aminotrans (AST/SGOT 22.0 U/L (12-37); Bilirubin, Total 1.2 mg/dL (0.1-1.0); Blood Urea Nitrogen 8.0 mg/dL (8-24); CO2, Blood 23.0 mmol/L (21-32); Calcium, Blood 10.0 mg/dL (8.5-10.1); Chloride, Blood 102.0 mmol/L (98-108); Creatinine, Blood 0.62 mg/dL (0.40-1.00); Globulin, Blood 3.6 g/dL (2.2-4.0); Glucose, Blood 147.0 mg/dL (70-99); Potassium, Blood 3.1 mmol/L (3.5-5.5); Sodium, Blood 134.0 mmol/L (136-145); Total Protein, Blood 8.1 g/dL (6.4-8.2)
[2025-08-28 00:01] LABS: Source, Urine Clean Catch
[2025-08-28 00:06] LABS: Bilirubin, Urine Neg (Neg); Glucose Qualitative, Urine Neg (Neg); Ketones, Urine Neg (Neg); Leukocyte Esterase, Urine 1+ (Neg); Protein, Urine 1+ (Neg); Specific Gravity, Urine 1.010 (1.003-1.022); Urobilinogen, Urine NORM (Normal)
[2025-08-28 00:09] LABS: Color, Urine Yellow (P-Yellow)
[2025-08-28 00:19] LABS: Red Blood Cells, Urine 0-2 /hpf (0-2)
[2025-08-28 00:25] LABS: U Amphetamine Screen DETECTED; U Barbiturate Screen Not Detected; U Benzodiazapine Screen Not Detected; U Buprenorphine Screen Not Detected; U Cannabinoids Screen Not Detected; U Cocaine Screen Not Detected; U Methadone Screen Not Detected; U Methamphetamine Screen DETECTED; U Opiates Screen Not Detected; U Oxycodone Screen Not Detected; U Phencyclidine Screen Not Detected
[2025-08-28] MEDS ORDERED: Diazepam 5 MG / ML 2ML SYR IV ONE (00:50)
[2025-08-28] MEDS ORDERED: NS 1,000 ML IV SCH (00:50)
[2025-08-28] MEDS ORDERED: Potassium Chloride 10 Meq Tablet SA PO ONE (04:25)
[2025-08-28] MEDS ORDERED: Lidocaine 4% 1 Patch TOP ONE (04:25)
[2025-08-28] MEDS ORDERED: LIDO700A20 TOP (04:26)
[2025-08-28] MEDS ORDERED: CEPH500 PO (04:26)
[2025-08-28 04:30] VITALS: BP 149/101
== END 2025-08-28 04:44 | disposition home or self-care (01) ==
LOC: ER 20:03
PROVIDERS: Physician Assistant
DX: N39.0 Urinary tract infection, site not specified (principal); E86.0 Dehydration; S32.048A Other fracture of fourth lumbar vertebra, initial encounter for closed fracture; S32.058A Other fracture of fifth lumbar vertebra, initial encounter for closed fracture; E87.6 Hypokalemia; I10 Essential (primary) hypertension; F17.210 Nicotine dependence, cigarettes, uncomplicated; Z87.440 Personal history of urinary (tract) infections; Z88.1 Allergy status to other antibiotic agents; Z88.0 Allergy status to penicillin; Z79.899 Other long term (current) drug therapy; Z59.89 Other problems related to housing and economic circumstances; W19.XXXA Unspecified fall, initial encounter
CPT/HCPCS: 74018; 74177; 80053; 81001; 81025; 85025; 87077; 87086; 87186; 96374-59; 99284-25; A9270; J3360; J7030; Q9967

== ENCOUNTER 2025-09-22 11:35 | Emergency (ER) | payer BC ==
[~2025-09-22] VITALS: Ht 162.6 cm; Wt 56.7 kg
[~2025-09-22 11:35] MED LIST changes: +LIDO700A20 TOP
[2025-09-22 13:29] LABS: Source, Urine Clean Catch
[2025-09-22 13:34] LABS: Bilirubin, Urine Neg (Neg); Color, Urine Yellow (P-Yellow); Glucose Qualitative, Urine Neg (Neg); Ketones, Urine Neg (Neg); Leukocyte Esterase, Urine Neg (Neg); Protein, Urine Neg (Neg); Specific Gravity, Urine 1.010 (1.003-1.022); Urobilinogen, Urine 1+ (Normal)
[2025-09-22 13:43] LABS: White Blood Cells, Urine 0-2 /hpf (0-5)
[2025-09-22] MEDS ORDERED: TIZA4 PO (14:14)
[2025-09-22] MEDS ORDERED: LIDO700A20 TOP (14:14)
[2025-09-22 14:24] VITALS: BP 167/99
== END 2025-09-22 14:23 | disposition home or self-care (01) ==
LOC: ER 11:35
PROVIDERS: Physician Assistant
DX: S30.0XXA Contusion of lower back and pelvis, initial encounter (principal); F17.210 Nicotine dependence, cigarettes, uncomplicated; I10 Essential (primary) hypertension; X58.XXXA Exposure to other specified factors, initial encounter; Z79.899 Other long term (current) drug therapy; Z88.0 Allergy status to penicillin; Z88.8 Allergy status to other drugs, medicaments and biological substances
CPT/HCPCS: 72170; 81001; 99284-25

== ENCOUNTER 2025-10-23 16:22 | Emergency (ER) | payer BC ==
[~2025-10-23] VITALS: Ht 162.6 cm; Wt 54.4 kg
[~2025-10-23 16:22] MED LIST changes: +TIZA4 PO
[2025-10-23] MEDS ORDERED: Ondansetron 4 MG SoluTab SL ONE (16:30)
[2025-10-23] MEDS ORDERED: NS 1,000 ML IV SCH (16:30)
[2025-10-23] MEDS ORDERED: RX Prepack 2 Sprays Naloxone HCL 4 MG/SPRAY UD ONE (17:20)
[2025-10-23 17:45] VITALS: BP 146/99
== END 2025-10-23 18:07 | disposition home or self-care (01) ==
LOC: ER 16:22
DX: T40.411A Poisoning by fentanyl or fentanyl analogs, accidental (unintentional), initial encounter (principal); I10 Essential (primary) hypertension; F17.210 Nicotine dependence, cigarettes, uncomplicated; Z79.899 Other long term (current) drug therapy; Z88.0 Allergy status to penicillin; Z88.8 Allergy status to other drugs, medicaments and biological substances
CPT/HCPCS: 93005; 93010; 99284-25; A6590; A9270; J7030